=== PATIENT | female | born 2000 | race Caucasian/White ===

== ENCOUNTER 2019-03-08 02:09 | Emergency (ER) | payer OTHER ==
--- NOTE | 2019-03-08 02:33 | ED ---
Abdominal Pain/Female - HPI Summary HPI Summary: Patient is a 18 y/o F presenting to [facility] accompanied by two friends with chief complaint of generalized abdominal pain. She states that she awoke at around 0100 03/08/19 with severe abdominal pain. Patient felt chills, nausea, near- syncopal and had urgency of bowel movements. She states that she was on toilet for 30 minutes and the pain lessened during this time. Patient reports she was fine yesterday 03/07/19. Diarrhea is denied. Some dysuria is noted. At present time, pain feels to be worsening once more. She denies abdominal surgery, previous similar issues, and daily medications. Patient had copper IUD. LNMP was 02/08. She states that she expects her menstrual cycle to start in two days. Patient notes that the pain is dissimilar to her menstrual cramping. On triage, pain is rated 6/10. Home medications and allergies are reviewed. - History of Current Complaint Chief Complaint: EDAbdPain Stated Complaint: ABD PAIN PER PT Time Seen by Provider: 03/08/19 02:27 Hx Obtained From: Patient Onset/Duration: Lasting Hours, Still Present Timing: Hours Severity Initially: Severe Severity Currently: Moderate Pain Intensity: 6 Pain Scale Used: 0-10 Numeric Location: Diffuse Associated Signs and Symptoms: Positive: Urinary Symptoms - dysuria, Nausea, Other: - chills, near-syncope, urgency of bowel movements. Negative: Diarrhea Allergies/Adverse Reactions: Allergies Allergy/AdvReac Type Severity Reaction Status Date / Time No Known Allergies Allergy Verified 03/08/19 02:13 Home Medications: Home Medications NK [No Home Medications Reported] 03/08/19 [History Confirmed 03/08/19] PMH/Surg Hx/FS Hx/Imm Hx Sensory History: Denies: Hx Legally Blind, Hx Deafness Opthamlomology History: Denies: Hx Legally Blind EENT History: Denies: Hx Deafness Infectious Disease History: No Infectious Disease History: Denies: Traveled Outside the [place] in Last 30 Days - Family History Known Family History: Negative: Hypertension, Diabetes - Social History Alcohol Use: None Substance Use Type: Reports: None Smoking Status (MU): Never Smoked Tobacco Review of Systems Positive: Chills Gastrointestinal: Other - positive - urgency of bowel movements Positive: Abdominal Pain, Nausea. Negative: Diarrhea Positive: dysuria Positive: Syncope - NEAR All Other Systems Reviewed And Are Negative: Yes Physical Exam - Summary Physical Exam Summary: Appearance: Well-appearing, Well-nourished, lying in bed comfortably Skin: Warm, dry, no obvious rash Eyes: sclera anicteric, no conjunctival pallor ENT: mucous membranes moist, pharynx appears normal Neck: Supple, nontender Respiratory: Clear to auscultation, no signs of respiratory distress Cardiovascular: Normal S1, S2. No murmurs. Normal distal pulses in tibial and radial bilaterally. Abdomen: Soft, minimal lower abdominal tenderness with no guarding and no rebound, normal active bowel sounds present. Musculoskeletal: Normal, Strength/ROM Intact Neurological: A&Ox3, awake and alert, mentation is normal, speech is fluent and appropriate Psychiatric: affect is normal, does not appear anxious or depressed Triage Information Reviewed: Yes Vital Signs On Initial Exam: Initial Vitals Temp Pulse Resp BP Pulse Ox 98.3 F 111 18 119/73 100 03/08/19 02:10 03/08/19 02:10 03/08/19 02:10 03/08/19 02:10 03/08/19 02:10 Vital Signs Reviewed: Yes Procedures - Sedation Patient Received Moderate/Deep Sedation with Procedure: No Diagnostics - Vital Signs Vital Signs Temp Pulse Resp BP Pulse Ox 03/08/19 02:10 98.3 F 111 18 119/73 100 - Laboratory Result Diagrams: 03/08/19 03:00 03/08/19 03:00 Lab Statement: Any lab studies that have been ordered have been reviewed, and results considered in the medical decision making process. Re-Evaluation - Re-Evaluation First Eval Re-Evaluation Time: 04:44 Change: Improved Comment: Patient reports improvement of Sx but notes some abdominal cramping is still present. Results of workup were discussed with the patient. She was discharged to home and will return to ED for US if pain worsens. Abdominal Pain Fem Course/Dx - Course Course Of Treatment: Patient is a 18 y/o F [facility] by two friends with chief complaint of generalized abdominal pain. She states that she awoke at around 0100 03/08/19 with severe abdominal pain. Patient felt chills , nausea, near-syncopal and had urgency of bowel movements. She states that she was on toilet for 30 minutes and the pain lessened during this time. Patient reports she was fine yesterday 03/07/19. Diarrhea is denied. Some dysuria is noted. At present time, pain feels to be worsening once more. She denies abdominal surgery, previous similar issues, and daily medications. Patient had copper IUD. LNMP was 02/08. Abdomen: Soft, minimal lower abdominal tenderness with no guarding and no rebound, normal active bowel sounds present. Bloodwork was obtained and WNL with exception of RBC 4.89, glucose 103, total bilirubin 1.5. UA showed 1+ protein and blood, 3+ RBC, trace ketones, and squamous epith cells present. During ED course, patient received Motrin 400 mg PO. Patient reports improvement of Sx but notes some abdominal cramping is still present. Results of workup were discussed with the patient. She was discharged to home and will return to ED for US if pain worsens. - Diagnoses Provider Diagnoses: Ruptured ovarian cyst Discharge ED - Sign-Out/Discharge Documenting (check all that apply): Patient Departure - discharge - Discharge Plan Condition: Stable Disposition: HOME Patient Education Materials: Ruptured Ovarian Cyst (ED) Referrals: [facility] [Outside] - If Needed Additional Instructions: Take it easy over the weekend. You can take motrin or naprosyn for pain. If your pain worsens I would not expect that and would like to see you back so we can do further diagnostic testing, likely a pelvic ultrasound. - Billing Disposition and Condition Condition: STABLE Disposition: Home - Attestation Statements Document Initiated by Mell: Yes Documenting Scribe: SUZANNA FERNANDEZ Provider For Whom Mell is Documenting (Include Credential): SHREYA CISSE MD Scribe Attestation: ISUZANNA, scribed for SHREYA CISSE MD on 03/10/19 at 1833. Scribe Documentation Reviewed: Yes Provider Attestation: The documentation as recorded by the SUZANNA paul accurately reflects the service I personally performed and the decisions made by me, SHREYA CISSE MD Status of Scribe Document: Viewed
[2019-03-08] MEDS ORDERED: Ibuprofen TAB* 400 MG PO ONE (02:34)
[2019-03-08 03:12] LABS: ABS Eosinophils 0.1 10^3/ul (0-0.6); ABS Lymphocytes 1.8 10^3/ul (1.0-4.8); ABS Monocytes 0.6 10^3/ul (0-0.8); ABS Neutrophils 4.1 10^3/ul (1.5-7.7); Eosinophil % 1.6 %; Hematocrit 44 % (35-47); Hemoglobin 14.5 g/dL (12.0-16.0); Mean Corpuscular HGB Conc 33 g/dL (31-36); Mean Corpuscular Hemoglobin 30 pg (27-31); Mean Corpuscular Volume 90 fL (80-97); Mean Platelet Volume 7.8 fL (7.4-10.4); Platelet Count 252 10^3/uL (150-450); Red Blood Count 4.89 10^6 /uL (3.70-4.87); Red Cell Distribution Width 14 % (10-15); White Blood Count 6.7 10^3/uL (3.5-10.8)
[2019-03-08 03:28] LABS: ALT 12 U/L (7-52); AST 20 U/L (13-39); Albumin 4.7 g/dL (3.2-5.2); Albumin/Globulin Ratio 1.7 (1-3); Alkaline Phosphatase 43 U/L (34-104); Anion Gap 10 mmol/L (2-11); Blood Urea Nitrogen 15 mg/dL (6-24); C Reactive Protein < 1.00 mg/L (<8.01); CO2 Carbon Dioxide 22 mmol/L (22-32); Calcium 9.6 mg/dL (8.6-10.3); Chloride 106 mmol/L (101-111); EGFR African American 119.2 (>60); EGFR Non-African American 98.5 (>60); Globulin 2.8 g/dL (2-4); Glucose 103 mg/dL (70-100); Potassium 3.7 mmol/L (3.5-5.0); Sodium 138 mmol/L (135-145); Total Protein 7.5 g/dL (6.4-8.9)
[2019-03-08 03:29] LABS: Urine Appearance Cloudy; Urine Color Yellow
[2019-03-08 03:30] LABS: Urine Bilirubin Negative (Negative); Urine Blood 1+ (Negative); Urine Glucose Negative (Negative); Urine Ketones Trace (Negative); Urine Nitrite Negative (Negative); Urine Protein 1+(30 mg/dL) (Negative); Urine Urobilinogen Negative (Negative)
[2019-03-08 03:34] LABS: HCG Pregnancy < 0.60 mIU/mL
[2019-03-08 04:18] LABS: Urine Bacteria Absent (Absent); Urine Red Blood Cell 3+(>10/hpf) (Absent); Urine Squamous Epithelial Cell Present (Absent); Urine White Blood Cell Absent (Absent)
[2019-03-08 05:01] VITALS: BP 0/0
== END 2019-03-08 04:59 | disposition home or self-care (01) ==
LOC: ED 02:09
DX: N83.209 Unspecified ovarian cyst, unspecified side (principal)
CPT/HCPCS: 36415; 80053; 81003; 83690; 84702; 85025; 86140; 99282; A9270-GY